=== PATIENT | male | born 1955 | race Caucasian/White ===

== ENCOUNTER → 2016-05-11 | Outpatient (CLI) | payer OTHER ==
[~2016-05-11] MED LIST: ATEN100T PO; ATEN50TA PO; CYCL1TAB29 PO; EDAR40TA PO; MULT1TAB85 PO; NAPR220T95 PO; TRAM50TA PO; VALS1TAB65 PO; VIAG100T PO
--- NOTE | 2016-05-11 14:04 | RADRPT ---
EXAM DATE/TIME: 05/11/2016 12:47 [facility] COMPARISON: No previous studies available for comparison. INDICATIONS : Evaluate renal calculi. ORAL CONTRAST: No oral contrast ingested. RADIATION DOSE: 7.46 CTDIvol (mGy) MEDICAL HISTORY : Carcinoma, prostate. SURGICAL HISTORY : None. ENCOUNTER: Initial ACUITY: 1 day PAIN SCALE: 0/10 LOCATION: Bilateral flank TECHNIQUE: Volumetric scanning of the abdomen and pelvis was performed. Using automated exposure control and ad justment of the mA and/or kV according to patient size, radiation dose was kept as low as reasonably achievable to obtain optimal diagnostic quality images. FINDINGS: LOWER LUNGS: The visualized lower lungs are clear. LIVER: Homogeneous density without lesion. There is no dilation of the biliary tree. No calcified gallston es. SPLEEN: Normal in size with scattered sub-centimeters granulomatous type calcifications. PANCREAS: Within normal limits. KIDNEYS: Cluster of sub-centimeters nonobstructing stones in the lower pole collecting system of the left kidn ey. There appears to be a parenchymal or vascular calcification posteriorly in the midpole of the rig ht kidney. ADRENAL GLANDS: Within normal limits. VASCULAR: There is no aortic aneurysm. BOWEL/MESENTERY: A few scattered diverticula in the descending and sigmoid colon without diverticulitis. ABDOMINAL WALL: Within normal limits. RETROPERITONEUM: There is no lymphadenopathy. BLADDER: No wall thickening or mass. REPRODUCTIVE: Dystrophic prostatic calcifications. INGUINAL: There is no lymphadenopathy or hernia. MUSCULOSKELETAL: Within normal limits for patient age. CONCLUSION: 1. Cluster of subcentimeter nonobstructing renal calculi in the lower pole collecting system the left kidney. 2. Granulomatous type calcifications in the spleen. 3. 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 Kartik Thomas MD on May 11, 2016 at 13:58 Board Certified Radiologist. This report was verified electronically.
== END ==
LOC: HRAD 12:28
PROVIDERS: ATTEND Urology
DX: N20.0 Calculus of kidney (principal); C61 Malignant neoplasm of prostate
CPT/HCPCS: 74176

== ENCOUNTER → 2016-08-25 | Outpatient (CLI) | payer OTHER ==
[~2016-08-25] MED LIST changes: -ATEN50TA PO; -EDAR40TA PO; +MULTTAB12; +NAPR220C22
== END ==
LOC: HRAD 07:03
PROVIDERS: ATTEND Urology
DX: C61 Malignant neoplasm of prostate (principal)

== ENCOUNTER → 2016-10-12 | Outpatient (CLI) | payer OTHER ==
[~2016-10-12] MED LIST changes: -MULT1TAB85 PO; -NAPR220T95 PO; -TRAM50TA PO
--- NOTE | 2016-10-12 15:15 | RADRPT ---
EXAM DATE/TIME: 10/12/2016 13:44 [facility] COMPARISON: No previous studies available for comparison. PRIOR BONE SCANS: No correlative bone scan available for comparison. INDICATIONS : Prostate cancer. DOSE: 31 mCi Tc99m MDP IV MEDICAL HISTORY : Carcinoma, prostate. Hypertension. SURGICAL HISTORY : None. ENCOUNTER: Initial ACUITY: 1 yr PAIN SCALE: 0/10 LOCATION: Prostate TECHNIQUE: Three hours post intravenous administration of radiotracer, whole body bone scan imaging was performe d. FINDINGS: Blood pool images demonstrate a homogeneous pattern of uptake in the soft tissues. No hyperemic area s are identified. Planar bone scan demonstrates a normal pattern of uptake. No focal areas of incre ased or decreased uptake are seen with exception of increased activity involving the right shoulder. CONCLUSION: 1. No evidence of metastatic disease. Micky Stauffer MD on October 12, 2016 at 15:12 Board Certified Radiologist. This report was verified electronically.
== END ==
LOC: HRAD 09:43
PROVIDERS: ATTEND Urology
DX: C61 Malignant neoplasm of prostate (principal)
CPT/HCPCS: 78306; A9503